=== PATIENT | female | born 1955 | race American Indian/Alaskan Native ===

== ENCOUNTER 2022-12-22 00:44 | Emergency (ER) | payer BC, SELFPAY ==
[2022-12-22] VITALS (33 sets, daily range): BP systolic 152–168; BP diastolic 71–79; PULSE 64–90; RESP 1–33; TEMP 37; O2SAT 92–96; BMI 81.8
--- NOTE | 2022-12-22 00:59 | ED.DIZZY1 ---
HPI - Dizziness General Chief Complaint: Dizziness Stated Complaint: DIZZINESS Time Seen by Provider: 12/22/22 00:59 Mode of arrival: ambulance History of Present Illness HPI Narrative: Patient presents to emergency department via EMS with complaint of dizziness. Patient is complaining of severe acute onset of dizziness worse when she changes position. She states she felt like she was drunk without being drunk. This made her feel very confused, nauseated and anxious. Patient was seen and evaluated at [place] for syncope on the . She was admitted overnight had blood work, x-rays CT and MRI of the brain which did not show anything acute. He was discharged with a Holter monitor and was seen by cardiology and neurology. Patient states she had a headache when she was seen at [facility]. Did not give her anything for the headache. She went home and 5 hours later had the same type of symptoms she was seen at [facility]. She was discharged from [facility] with a prescription for Antivert, and Medrol Dosepak which she has not picked up yet. Patient is very anxious stating she does not know what is going on has never happened before. She denies any chest pain, or shortness of breath. She has a history of chronic obstructive pulmonary disease and is normally on 4 L nasal cannula. She denies any fever, chills, or cough.The patient is on several to for paroxysmal atrial fibrillation. She denies any palpitations. Related Data Home Medications Medication Instructions Recorded Confirmed albuterol sulfate 90 mcg/actuation 2 puff inhalation Q4H 12/22/22 12/22/22 aerosol inhaler amoxicillin 500 mg tablet mg 12/22/22 aspirin 325 mg tablet mg 12/22/22 blood sugar diagnostic (Accu-Chek 12/22/22 12/22/22 Guide test strips) carvedilol 25 mg tablet mg 12/22/22 fluticasone furoate 100 inhalation 12/22/22 mcg-vilanterol 25 mcg/dose inhalation powder (Breo Ellipta) hydrocodone 5 mg-acetaminophen 325 1 tab PO Q8H 12/22/22 12/22/22 mg tablet ipratropium 0.5 mg-albuterol 3 mg 3 ml inhalation 12/22/22 (2.5 mg base)/3 mL nebulization soln levalbuterol HCl 1.25 mg/3 mL 1.25 mg inhalation Q4H 12/22/22 12/22/22 solution for nebulization lisinopril 40 mg tablet 40 mg PO DAILY 12/22/22 12/22/22 loratadine 10 mg tablet 10 mg PO Q24H 12/22/22 12/22/22 methylprednisolone 4 mg tablets in mg 12/22/22 a dose pack metoprolol tartrate 50 mg tablet 50 mg PO Q12H 12/22/22 12/22/22 nicotine 21 mg/24 hr daily 1 patch transdermal Q24H 12/22/22 12/22/22 transdermal patch omeprazole 20 mg capsule,delayed 20 mg PO DAILY 12/22/22 12/22/22 release ondansetron HCl 4 mg tablet mg 12/22/22 pen needle, diabetic 31 gauge x 12/22/22 12/22/2208/12 (BD Ultra-Fine Mini Pen Needle) rivaroxaban 20 mg tablet (Xarelto) 20 mg PO .morning 12/22/22 12/22/22 rosuvastatin 10 mg tablet 20 mg PO .morning 12/22/22 12/22/22 tramadol 50 mg tablet mg 12/22/22 Previous Rx's Medication Instructions Recorded diazepam 5 mg tablet (Valium) 5 mg PO Q8H PRN anxiety 10 days 12/22/22 #20 tabs Allergies Allergy/AdvReac Type Severity Reaction Status Date / Time nalbuphine [From Nubain] Allergy Verified 12/22/22 00:56 codine Allergy Mild Uncoded 12/22/22 00:56 Review of Systems ROS Status of ROS 10 or more systems reviewed and unremarkable except as noted in history and below [facility] Medical History (Updated 12/22/22 @ 05:51 by Adelina Lozano MD) Surgical History (Updated 12/22/22 @ 04:55 by Odilia Laughlin) Social History Smoking status: Former smoker Exam Narrative Exam Narrative: Nurses notes and vital signs reviewed and patient is not hypoxic. General: Nontoxic, Anxious, hyperventilating Skin: Warm, dry, no pallor noted. No Rash Head: Normocephalic, atraumatic. Neck: Supple, non-tender. Eye: Pupils are equal, round and EOMI. No scleral icterus.no nystagmus Ears, Nose, Mouth, and Throat: TM clear, no posterior oropharynx erythema or nasal mucosal hypertrophy, uvula is mid-line Oral mucosa is moist Cardiovascular: Regular Rate and Rhythm without murmur, gallop or rub. Respiratory: No accessory muscle use or respiratory distress. Lungs are clear to auscultation, no wheezing, rales or rhonchi Chest Wall: no tenderness Back: No midline thoracic or lumbar vertebral tenderness. No CVA tenderness Musculoskeletal: normal ROM, no calf or popliteal tenderness, no lower extremity edema/swelling GI: Obese, Abdomen is soft, non-distended. Normal bowel sounds. No masses appreciated. No tenderness to palpation. No rebound, guarding, or rigidity noted. Neurological: A&O x4. No cranial nerve dysfunction observed. No truncal ataxia. Moves all extremities. Sensation intact. Psychiatric: Cooperative and interactive. anxious Constitutional Vital Signs, click to edit/add: Last Vital Signs Temp 98.6 F 12/22/22 00:48 Pulse 77 12/22/22 04:30 Resp 16 12/22/22 04:30 BP 160/71 H 12/22/22 01:59 Pulse Ox 93 L 12/22/22 03:20 O2 Del Method Nasal Cannula 12/22/22 01:30 O2 Flow Rate 2 12/22/22 01:30 Course Vital Signs Vital signs: Vital Signs Temperature 98.6 F 12/22/22 00:48 Pulse Rate 80 12/22/22 00:48 Respiratory Rate 16 12/22/22 00:48 Blood Pressure 168/74 H 12/22/22 00:48 Pulse Oximetry 95 12/22/22 00:48 Oxygen Delivery Flow Rate 2 12/22/22 00:48 Temperature 98.6 F 12/22/22 00:48 Pulse Rate 77 12/22/22 04:30 Respiratory Rate 16 12/22/22 04:30 Blood Pressure 160/71 H 12/22/22 01:59 Pulse Oximetry 93 L 12/22/22 03:20 Oxygen Delivery Method Nasal Cannula 12/22/22 01:30 Oxygen Delivery Flow Rate 2 12/22/22 01:30 MDM - Dizziness MDM Narrative Medical decision making narrative: Patient was given Antivert, and Valium 10 mg by mouth. Labs studies were done and are unremarkable. CT of the brain and chest x-ray are unremarkable. Patient slept and rested. She had an episode where she woke up from sleep asking if we had called the police. However within an hour the patient was 100 peercent at her baseline since he was happy smiling sitting up walking to the bathroom and stating she has not felt better. She is no longer dizzy she is able to ambulate. She is tolerating by mouth. Patient is requesting to go home. She was advised to fill the prescription for Antivert, given a prescription for Valium. She is to not fill the Medrol dosepak. She will follow up with Dr. Powers in the morning. She also has follow-up appointments with neurology and we also discussed following up with mental health. At this time the patient is without objective evidence of an acute process requiring hospitalization or inpatient management. The patient has remained hemodynamically stable. No additional indication for emergent studies at this time. I answered all questions. Discussed discharge instructions including standard anticipatory guidance and what should prompt a return to the emergency department, including if they get worse are not getting better or develops any new or concerning symptoms. I've given them specific time frame in which to follow-up, and who to follow-up with. The patient demonstrates understanding. Patient is nontoxic and stable for discharge with outpatient follow-up. This note was created with the assistance of a speech recognition program. Although the intention is to generate documents that actually reflects the content of the visit, no guarantees can be provided that every mistake has been identified and corrected by editing. Differential Diagnosis Differential diagnosis: Likely benign paroxysmal positional vertigo, orthostatic hypotension, vertebral basilar insufficiency, acute vestibular neuronitis and transient cerebral ischemia Medical Records Attestation: I reviewed the patient's medical records. Medical records narrative[facility] Lab Data Attestation: I reviewed the patient's lab results. Labs: Lab Results 12/22/22 12/22/22 12/22/22 Range/Units 01:19 01:20 03:20 WBC 6.0 (4.0-11.0) 10^3/uL RBC 4.18 L (4.20-5.40) 10^6/uL Hgb 13.4 (12.0-16.0) g/dL Hct 40.0 (36.0-48.0) % MCV 95.7 (81.0-99.0) fL MCH 32.1 (26.7-34.0) pg MCHC 33.5 (29.9-35.2) g/dL RDW 12.2 (11.0-15.0) % Plt Count 249 (150-450) 10^3/uL MPV 10.0 (9.5-13.5) fL Neut % (Auto) 75.1 H (43.0-75.0) % Lymph % (Auto) 22.4 (20.5-60.0) % Callahan % (Auto) 1.5 L (1.7-12.0) % Eos % (Auto) 0.0 L (0.9-7.0) % Baso % (Auto) 0.3 (0.2-2.0) % Neut # (Auto) 4.5 (1.4-6.5) 10^3/uL Lymph # (Auto) 1.3 (1.2-3.8) 10^3/uL Callahan # (Auto) 0.1 L (0.3-0.8) 10^3/uL Eos # (Auto) 0.0 (0.0-0.7) 10^3/uL Baso # (Auto) 0.0 (0.0-0.1) 10^3/uL Abs Immat Gran (auto) 0.04 H (0.00-0.03) 10^3/uL Imm/Tot Granulo (auto) 0.7 H (0.0-0.5) % Puncture Site R radial ABG pH 7.427 (7.350-7.450) ABG pCO2 35.5 (35.0-45.0) mmHg ABG pO2 63.0 L (80.0-100.0) mmHg ABG HCO3 23.4 (22.0-26.0) mmol/L ABG O2 Saturation 92.9 % ABG Base Excess -1.0 (-2.0-2.0) mmol/L Aki Test Positive (POSITIVE) O2 Liters/Min 2.5 Sodium 140 (136-145) mmol/L Potassium 4.2 (3.5-5.1) mmol/L Chloride 103 (98-107) mmol/L Carbon Dioxide 23.3 (21.0-32.0) mmol/L Anion Gap 17.9 BUN 21.0 H (7.0-18.0) mg/dL Creatinine 1.28 H (0.55-1.02) mg/dL Est GFR ( Amer) 51 L (>=60) Est GFR (Non-Af Amer) 42 L (>=60) BUN/Creatinine Ratio 16.4 Glucose 349 H (74-106) mg/dL Calcium 9.3 (8.5-10.1) mg/dL Total Bilirubin 1.4 H (0.2-1.0) mg/dL AST 15 (15-37) U/L ALT 28 (14-59) U/L Alkaline Phosphatase 44 L (46-116) U/L Troponin I High Sens 7.0 (4.0-51.3) pg/mL NT-Pro-B Natriuret Pep 515.0 (<=900.0) pg/mL Total Protein 7.2 (6.4-8.2) g/dL Albumin 3.7 (3.4-5.0) g/dL Globulin 3.5 g/dL Albumin/Globulin Ratio 1.1 POC Glucose 325 H (74-106) mg/dL ABG Data Attestation: I personally reviewed and interpreted this ABG as follows: ECG Data Attestation: I personally reviewed and interpreted this ECG as follows: Discharge Plan Discharge Chief Complaint: Dizziness Clinical Impression: Hyperglycemia, Vertigo Patient Disposition: Home, Self-Care Time of Disposition Decision: 05:44 Condition: Good Mode of Transportation: Private Vehicle Prescriptions / Home Meds: New diazepam [Valium] 5 mg tablet 5 mg PO Q8H MDD vertigo PRN (Reason: anxiety) 10 Days Qty: 20 0RF No Action ipratropium-albuterol 0.5 mg-3 mg(2.5 mg base)/3 mL solution for nebulization 3 ml INHALATION hydrocodone-acetaminophen 5-325 mg tablet 1 tab PO Q8H tramadol 50 mg tablet amoxicillin 500 mg tablet metoprolol tartrate 50 mg tablet 50 mg PO Q12H nicotine 21 mg/24 hr patch 24 hour 1 patch transdermal Q24H levalbuterol HCl 1.25 mg/3 mL solution for nebulization 1.25 mg INHALATION Q4H methylprednisolone 4 mg tablets,dose pack albuterol sulfate 90 mcg/actuation HFA aerosol inhaler 2 puff INHALATION Q4H lisinopril 40 mg tablet 40 mg PO DAILY rosuvastatin 10 mg tablet 20 mg PO .morning (DME) pen needle, diabetic [BD Ultra-Fine Mini Pen Needle] 31 gauge x 3/16 needle MISCELLANEOUS Xarelto 20 mg tablet 20 mg PO .morning (DME) Accu-Chek Guide test strips Strip MISCELLANEOUS loratadine 10 mg tablet 10 mg PO Q24H fluticasone furoate-vilanterol [Breo Ellipta] 100-25 mcg/dose blister with device INHALATION aspirin 325 mg tablet ondansetron HCl 4 mg tablet carvedilol 25 mg tablet omeprazole 20 mg capsule,delayed release(DR/EC) 20 mg PO DAILY Instructions: Vertigo (ED) Stand Alone Forms: Portal Instructions Referrals: YUNIOR POWERS [Primary Care Provider] - 1 week
[2022-12-22 01:21] LABS: Glucometer 325 mg/dL (74-106)
--- NOTE | 2022-12-22 01:25 | XR_ITS ---
The [address] [address] Patient Name: RAJI ROSARIO MRN: [id number] date: 1955 Sex: F Assigned Patient Location: ER Current Patient Location: ER Accession/Order Number: [id number] Exam Date: 12/22/2022 01:40 Report Date: 12/22/2022 05:49 At the request of: SOCORRO AMAYA Procedure: XR chest 1V EXAM: XR chest 1V HISTORY: COPD. COMPARISON: 06/27/2015. TECHNIQUE: AP erect portable chest radiograph performed. FINDINGS: There is a mechanical device overlying the left chest. The trachea is midline. The heart size is within normal limits. There is stable moderate atheromatous calcification at the aortic arch. The hilar shadows are unremarkable. There is increased density within the lower chest bilaterally secondary to overlying soft tissues/breasts. The lung volumes are normal. There is no consolidation or infiltrate. There is no pleural effusion or pulmonary vascular congestion. There is no pneumothorax. The bony structures are osteopenic. There is no acute osseous abnormality. XR/XR chest 1V IMPRESSION: There is no acute cardiopulmonary process. Electronically authenticated by: KELSEY MENDEZ Date: 12/22/2022 05:49
--- NOTE | 2022-12-22 01:25 | ECG_ITS ---
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
--- NOTE | 2022-12-22 01:26 | CT_ITS ---
The [address] [address] Patient Name: RAJI ROSARIO MRN: [id number] date: 1955 Sex: F Assigned Patient Location: ER Current [facility] Accession/Order Number: [id number] Exam Date: 12/22/2022 01:40 Report Date: 12/22/2022 04:26 At the request of: SOCORRO AMAYA Procedure: CT head/brain wo con EXAM: CT head/brain wo con CLINICAL INDICATION: mental status changes COMPARISON: None TECHNIQUE: Axial CT images of the brain were obtained without contrast. Dose reduction techniques were achieved by using automated exposure control and/or adjustment of mA and/or kV according to patient size and/or use of iterative reconstruction technique. FINDINGS: Brain parenchyma: No mass effect or midline shift is seen. Mac-white differentiation is maintained. Small focal hyperdensity noted along the left jovel radiata measuring 3.4 mm may represent a small cavernoma versus less likely focal hemorrhage. No findings suggesting acute stroke. Periventricular hypoattenuation / patchy white matter hypodensities are statistically most often related to small vessel ischemic disease. Ventricles and extra-axial spaces: Ventricles are concordant with sulci. No findings suggesting hydrocephalus. Visualized paranasal sinuses: No findings suggesting acute sinusitis. Mastoid air cells: Clear. Included portions of the orbits:Included portions of the orbits with no evidence of fracture or other acute pathology. Bones: No fracture is seen. CT/CT head/brain wo con Impression: 1. Small focal hypodensity visualized along the left jovel radiata measuring 3.4 mm and may represent a small vascular malformation/cavernoma versus less likely a focal hemorrhage. Otherwise no acute processes visualized within the brain. No findings suspicious for acute stroke by noncontrast head CT. If there is high suspicion for acute intracranial pathology, please note that magnetic resonance imaging or other additional evaluation may be more sensitive than noncontrast head CT. Electronically authenticated by: HUMERA PLATT Date: 12/22/2022 04:26
[2022-12-22 01:44] LABS: Basophils Percent Auto 0.3 % (0.2-2.0); Hemoglobin 13.4 g/dL (12.0-16.0); Immature Granulocytes Abs Auto 0.04 10^3/uL (0.00-0.03); Immature Granulocytes Pct Auto 0.7 % (0.0-0.5); Lymphocytes Absolute Auto 1.3 10^3/uL (1.2-3.8); Lymphocytes Percent Auto 22.4 % (20.5-60.0); Mean Corpuscular HGB Conc 33.5 g/dL (29.9-35.2); Mean Corpuscular Hemoglobin 32.1 pg (26.7-34.0); Mean Corpuscular Volume 95.7 fL (81.0-99.0); Monocytes Absolute Auto 0.1 10^3/uL (0.3-0.8); Monocytes Percent Auto 1.5 % (1.7-12.0); Neutrophils Absolute Auto 4.5 10^3/uL (1.4-6.5); Neutrophils Percent Auto 75.1 % (43.0-75.0); Platelet Count 249 10^3/uL (150-450); Red Blood Count 4.18 10^6/uL (4.20-5.40); Red Cell Distribution Width 12.2 % (11.0-15.0)
[2022-12-22] MEDS: MECLIZINE HCL 12.5 MG TABLET 25 MG PO (01:54)
[2022-12-22] MEDS: 0.9 % SODIUM CHLORIDE 1,000 ML 1000 ML IV (01:54)
[2022-12-22] MEDS: DIAZEPAM 5 MG TABLET 10 MG PO (01:54)
[2022-12-22 02:05] LABS: Alanine Aminotransferase 28 U/L (14-59); Albumin Globulin Ratio 1.1; Albumin Level 3.7 g/dL (3.4-5.0); Alkaline Phosphatase 44 U/L (46-116); Anion Gap 17.9; Aspartate Amino Transferase 15 U/L (15-37); BUN Creatinine Ratio 16.4; Bilirubin Total 1.4 mg/dL (0.2-1.0); Calcium 9.3 mg/dL (8.5-10.1); Carbon Dioxide 23.3 mmol/L (21.0-32.0); Chloride 103 mmol/L (98-107); Estimated GFR (African America 51 (>=60); Estimated GFR (Non-African Ame 42 (>=60); Globulin 3.5 g/dL; Glucose 349 mg/dL (74-106); Potassium 4.2 mmol/L (3.5-5.1); Sodium 140 mmol/L (136-145); Total Protein 7.2 g/dL (6.4-8.2)
--- NOTE | 2022-12-22 02:33 | PC.NURSE ---
Patient called ems for sob and dizziness.ems arrived patient was 92% on room air. saturation improved on 2l nasal canula.states she has COPD, quit smoking 3 months ago and has home o2 for 3L as needed. patient appears anxious on arrival. she was seen and evaluated at [facility] yesterday for the same thing. patient states she was diagnosed with vertigo and given prescriptions for meclizine and steroid sent to pharmacy but they did not have time to pick them up. patient states she cannot explain how she if feeling but she feels like something is wrong. upon arrival states she no longer feels SOB or dizzy but that it comes and goes. patient POC glucose 325 and reported to physician. patient denies hx of diabeties but states she was shot up with a bunch of steroids from [facility] and thats why her sugar is high. normal neuro assessment, A&O x4.
--- NOTE | 2022-12-22 02:52 | PC.NURSE ---
patient denies all pain
[2022-12-22 03:26] LABS: ABG PCO2 35.5 mmHg (35.0-45.0); Allen Test POSITIVE (POSITIVE); HCO3 ABG 23.4 mmol/L (22.0-26.0); Liters per Minute 2.5; O2 Mode NASAL CANNULA; Oxygen Saturation ABG 92.9 %; Puncture Site R RADIAL; pH ABG 7.427 (7.350-7.450)
== END 2022-12-22 06:28 | disposition home or self-care (01) ==
PROVIDERS: Emergency Provider Emergency Medicine; PCP Internal Medicine
DX: R42 Dizziness and giddiness (principal); R73.9 Hyperglycemia, unspecified; I48.0 Paroxysmal atrial fibrillation; J44.9 Chronic obstructive pulmonary disease, unspecified; Z99.81 Dependence on supplemental oxygen; Z87.891 Personal history of nicotine dependence; Z86.73 Personal history of transient ischemic attack (TIA), and cerebral infarction without residual deficits; I50.9 Heart failure, unspecified; Z79.899 Other long term (current) drug therapy; Z79.82 Long term (current) use of aspirin; Z79.01 Long term (current) use of anticoagulants
CPT/HCPCS: 36415; 36600; 70450; 71045; 80053; 82805; 83880; 84484; 85025; 93005; 99285

== ENCOUNTER 2023-01-25 09:57 | Emergency (ER) | payer BC, SELFPAY ==
[2023-01-25] VITALS (9 sets, daily range): BP systolic 129–147; BP diastolic 56–62; PULSE 44–59; RESP 14–21; TEMP 36.6; O2SAT 93–97; BMI 40.4
--- NOTE | 2023-01-25 10:33 | ED.DIZZY1 ---
HPI - Dizziness General Chief Complaint: Dizziness Stated Complaint: DIZZINESS Time Seen by Provider: 01/25/23 10:14 Source: patient Mode of arrival: ambulance Limitations: no limitations History of Present Illness HPI Narrative: This document has been composed with a new electronic medical record and [employer] voice recognition system. This document may not fully inaccurately reflect the entirety of the patient encounter.this patient's here by EMS for evaluation of dizziness. She called EMS because her was at work and could not drive her to the hospital. She has a long-standing history of this recently. She's been extensively violated at other emergency rooms other hospitals including this facility. She has had CTs of her head MRIs were had an full clinical evaluations and has no central nervous system disorder that they're aware of. She is not a diabetic. When her blood sugar was elevated on her last visit here it was due to steroids. The paramedics checked it today and her blood sugar was just over one hundred. She describes a spinning sensation as the description of her dizziness. She does not vomit. She does not have a headache. She has no difficulty with speech or swallowing. He has no weakness of the extremities or sensory disturbance. She takes Antivert on an as-needed basis. He has never seen physical therapy for any type of corrective maneuvers. Related Data Home Medications Medication Instructions Recorded Confirmed albuterol sulfate 90 mcg/actuation 2 puff inhalation Q4H 12/22/22 01/25/23 aerosol inhaler aspirin 325 mg tablet 325 mg PO DAILY 12/22/22 01/25/23 blood sugar diagnostic (Accu-Chek 12/22/22 01/25/23 Guide test strips) carvedilol 25 mg tablet mg 12/22/22 hydrocodone 5 mg-acetaminophen 325 1 tab PO Q8H 12/22/22 01/25/23 mg tablet ipratropium 0.5 mg-albuterol 3 mg 3 ml inhalation Q6H PRN shortness 12/22/22 01/25/23 (2.5 mg base)/3 mL nebulization of breath or wheezing soln lisinopril 40 mg tablet 40 mg PO DAILY 12/22/22 01/25/23 loratadine 10 mg tablet 10 mg PO Q24H 12/22/22 01/25/23 metoprolol tartrate 50 mg tablet 50 mg PO Q12H 12/22/22 01/25/23 omeprazole 20 mg capsule,delayed 20 mg PO DAILY 12/22/22 01/25/23 release pen needle, diabetic 31 gauge x 12/22/22 12/22/22 3/16 (BD Ultra-Fine Mini Pen Needle) rivaroxaban 20 mg tablet (Xarelto) 20 mg PO QAM 12/22/22 01/25/23 rosuvastatin 10 mg tablet 20 mg PO QPM 12/22/22 01/25/23 furosemide 40 mg tablet 40 mg PO DAILY 01/25/23 01/25/23 meclizine 25 mg tablet 25 mg PO TID PRN dizziness 01/25/23 01/25/23 nitroglycerin 0.4 mg sublingual 0.4 mg sublingual Q5M PRN chest 01/25/23 01/25/23 tablet pain Previous Rx's Medication Instructions Recorded diazepam 5 mg tablet (Valium) 5 mg PO Q8H PRN anxiety 10 days 12/22/22 #20 tabs Allergies Allergy/AdvReac Type Severity Reaction Status Date / Time nalbuphine [From Nubain] Allergy Verified 01/25/23 10:01 codine Allergy Mild Uncoded 01/25/23 10:01 [facility] Medical History (Updated 01/25/23 @ 11:22 by Prince Watkins MD) Surgical History (Updated 12/22/22 @ 04:55 by Odilia Laughlin) Social History Smoking status: Former smoker Exam Narrative Exam Narrative: awake alert oriented ?3 normal cognition. She says sometimes when she turns her head to the right reproduces her spinning and dizziness. HEENT shows definite nystagmus with lateral gaze. It is horizontal with no rotatory or vertical component. Hearing is intact bilaterally. There is no facial asymmetry or evidence of cranial nerve abnormality. Eye examination as noted she does have some nystagmus with slight lateral gaze. Does not have diplopia. Does not have gaze deficit. Heart examination shows heart regular rate and rhythm with no murmur. 12-lead EKG had been done shows sinus rhythm. Lungs are clear with no wheeze rales rhonchi or restaurant difficulty. Neurological examination shows cranial nerves be normal. Finger to nose is norrmal. Rapid alternating movements and fine motor skills were all tested and are also normal. Constitutional Vital Signs, click to edit/add: Last Vital Signs Temp 97.9 F 01/25/23 09:58 Pulse 59 L 01/25/23 10:46 Resp 19 01/25/23 10:46 BP 129/56 01/25/23 10:46 Pulse Ox 97 01/25/23 10:20 O2 Del Method Room Air 01/25/23 10:18 Course Vital Signs Vital signs: Vital Signs Temperature 97.9 F 01/25/23 09:58 Pulse Rate 53 L 01/25/23 09:58 Respiratory Rate 19 01/25/23 09:58 Blood Pressure 147/62 H 01/25/23 09:58 Pulse Oximetry 93 L 01/25/23 09:58 Oxygen Delivery Method Room Air 01/25/23 09:58 Temperature 97.9 F 01/25/23 09:58 Pulse Rate 59 L 01/25/23 10:46 Respiratory Rate 19 01/25/23 10:46 Blood Pressure 129/56 01/25/23 10:46 Pulse Oximetry 97 01/25/23 10:20 Oxygen Delivery Method Room Air 01/25/23 10:18 MDM - Dizziness MDM Narrative Medical decision making narrative: this patient's been thoroughly evaluated for this recurring problem of vertigo. It actually is a relatively mild attack and she doesn't feel bad here at THIS time. I told her that it would be beneficial for several days to take the Antivert on a continuing basis and not just on an as-needed basis. She may need referral to ENT and referral for physical therapy for head manipulation procedures Discharge Plan Discharge Chief Complaint: Dizziness Clinical Impression: Vertigo Patient Disposition: Home, Self-Care Time of Disposition Decision: 11:21 Prescriptions / Home Meds: No Action ipratropium-albuterol 0.5 mg-3 mg(2.5 mg base)/3 mL solution for nebulization 3 ml INHALATION Q6H PRN (Reason: shortness of breath or wheezing) hydrocodone-acetaminophen 5-325 mg tablet 1 tab PO Q8H metoprolol tartrate 50 mg tablet 50 mg PO Q12H albuterol sulfate 90 mcg/actuation HFA aerosol inhaler 2 puff INHALATION Q4H lisinopril 40 mg tablet 40 mg PO DAILY rosuvastatin 10 mg tablet 20 mg PO QPM (DME) pen needle, diabetic [BD Ultra-Fine Mini Pen Needle] 31 gauge x 3/16 needle MISCELLANEOUS Xarelto 20 mg tablet 20 mg PO QAM (DME) Accu-Chek Guide test strips Strip MISCELLANEOUS loratadine 10 mg tablet 10 mg PO Q24H aspirin 325 mg tablet 325 mg PO DAILY carvedilol 25 mg tablet omeprazole 20 mg capsule,delayed release(DR/EC) 20 mg PO DAILY diazepam [Valium] 5 mg tablet 5 mg PO Q8H MDD vertigo PRN (Reason: anxiety) 10 Days Qty: 20 0RF furosemide 40 mg tablet 40 mg PO DAILY meclizine 25 mg tablet 25 mg PO TID PRN (Reason: dizziness) nitroglycerin 0.4 mg tablet, sublingual 0.4 mg sublingual Q5M PRN (Reason: chest pain) Additional Instructions: take the Antivert three times a day for the next three days. Stand Alone Forms: Portal Instructions Referrals: YUNIOR SANTOS [Primary Care Provider] - 1 week
[2023-01-25] MEDS: MECLIZINE HCL 12.5 MG TABLET 25 MG PO (10:43)
[2023-01-25] MEDS: DIAZEPAM 5 MG TABLET 10 MG PO (10:43)
--- NOTE | 2023-01-25 13:10 | ECG_ITS ---
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
== END 2023-01-25 11:43 | disposition home or self-care (01) ==
PROVIDERS: Emergency Provider Emergency Medicine Emergency Medical Services; PCP Internal Medicine
DX: R42 Dizziness and giddiness (principal); Z79.899 Other long term (current) drug therapy; Z79.01 Long term (current) use of anticoagulants; Z79.82 Long term (current) use of aspirin; Z87.891 Personal history of nicotine dependence
CPT/HCPCS: 93005; 99283

== ENCOUNTER 2023-02-02 07:23 | Emergency (ER) | payer BC, SELFPAY ==
[2023-02-02] VITALS (17 sets, daily range): BP systolic 129–152; BP diastolic 54–66; PULSE 45–62; RESP 8–22; TEMP 36.6; O2SAT 88–99; BMI 38.9
--- NOTE | 2023-02-02 07:32 | ED_ITS ---
HPI - Dizziness General Chief Complaint: Dizziness Stated Complaint: GENERAL WEAKNESS Time Seen by Provider: 02/02/23 07:32 History of Present Illness HPI Narrative: Patient brought into the emergency department via EMS complaining of dizziness. Patient states she woke up this morning feeling dizzy like the room was spinning. She states she went to the bathroom and got back to her bed very fast and she was feeling weak. She denied any chest pain, shortness of breath. She denies any fever, or chills. Denies any headache, palpitations. She states she normally wears 3 L OXYGEN at night and she has been doing that without any problems. She is also being worked up for obstructive sleep apnea being fitted for a BiPAP. She states she's had dizziness intermittently for the last 22 months. She has meclizine at home but she did not take it. Related Data Home Medications Medication Instructions Recorded Confirmed albuterol sulfate 90 mcg/actuation 2 puff inhalation Q4H 12/22/22 01/25/23 aerosol inhaler aspirin 325 mg tablet 325 mg PO DAILY 12/22/22 01/25/23 blood sugar diagnostic (Accu-Chek 12/22/22 01/25/23 Guide test strips) carvedilol 25 mg tablet mg 12/22/22 hydrocodone 5 mg-acetaminophen 325 1 tab PO Q8H 12/22/22 01/25/23 mg tablet ipratropium 0.5 mg-albuterol 3 mg 3 ml inhalation Q6H PRN shortness 12/22/22 01/25/23 (2.5 mg base)/3 mL nebulization of breath or wheezing soln lisinopril 40 mg tablet 40 mg PO DAILY 12/22/22 01/25/23 loratadine 10 mg tablet 10 mg PO Q24H 12/22/22 01/25/23 metoprolol tartrate 50 mg tablet 50 mg PO Q12H 12/22/22 01/25/23 omeprazole 20 mg capsule,delayed 20 mg PO DAILY 12/22/22 01/25/23 release pen needle, diabetic 31 gauge x 12/22/22 12/22/22/16 (BD Ultra-Fine Mini Pen Needle) rivaroxaban 20 mg tablet (Xarelto) 20 mg PO QAM 12/22/22 01/25/23 rosuvastatin 10 mg tablet 20 mg PO QPM 12/22/22 01/25/23 furosemide 40 mg tablet 40 mg PO DAILY 01/25/23 01/25/23 meclizine 25 mg tablet 25 mg PO TID PRN dizziness 01/25/23 01/25/23 nitroglycerin 0.4 mg sublingual 0.4 mg sublingual Q5M PRN chest 01/25/23 01/25/23 tablet pain Previous Rx's Medication Instructions Recorded diazepam 5 mg tablet (Valium) 5 mg PO Q8H PRN anxiety 10 days 12/22/22 #20 tabs cephalexin 500 mg capsule 500 mg PO TID 7 days #21 caps 02/02/23 Allergies Allergy/AdvReac Type Severity Reaction Status Date / Time nalbuphine [From Nubain] Allergy Verified 01/25/23 10:01 codine Allergy Mild Uncoded 01/25/23 10:01 Review of Systems ROS Status of ROS 10 or more systems reviewed and unremarkable except as noted in history and below [facility] Medical History (Updated 02/02/23 @ 10:28 by Adelina Lozano MD) Surgical History (Updated 12/22/22 @ 04:55 by Odilia Laughlin) Social History Smoking status: Former smoker Exam Narrative Exam Narrative: Nurses notes and vital signs reviewed and patient is not hypoxic. General: Nontoxic, Well-appearing and in no apparent distress. Skin: Warm, dry, no pallor noted. No Rash Head: Normocephalic, atraumatic. Neck: Supple, non-tender. Eye: Pupils are equal, round and EOMI. No scleral icterus. Ears, Nose, Mouth, and Throat: TM clear, no posterior oropharynx erythema or nasal mucosal hypertrophy, uvula is mid-line Oral mucosa is moist Cardiovascular: Regular Rate and Rhythm without murmur, gallop or rub. Respiratory: No accessory muscle use or respiratory distress. Lungs are clear to auscultation, no wheezing, rales or rhonchi Chest Wall: no tenderness Back: No midline thoracic or lumbar vertebral tenderness. No CVA tenderness Musculoskeletal: normal ROM, no calf or popliteal tenderness, no lower extremity edema/swelling GI: obese, Abdomen is soft, non-distended. Normal bowel sounds. No tenderness to palpation. No rebound, guarding, or rigidity noted. Neurological: A&O x4. No cranial nerve dysfunction observed. No truncal ataxia. Moves all extremities. Psychiatric: Cooperative and interactive. Normal mood and affect. Constitutional Vital Signs, click to edit/add: Last Vital Signs Temp 97.8 F 02/02/23 07:31 Pulse 58 L 02/02/23 10:50 Resp 8 L 02/02/23 10:50 BP 129/65 02/02/23 10:35 Pulse Ox 97 02/02/23 10:50 O2 Del Method Nasal Cannula 02/02/23 08:20 O2 Flow Rate 2 02/02/23 08:20 Course Vital Signs Vital signs: Vital Signs Pulse Rate 58 L 02/02/23 07:29 Respiratory Rate 13 02/02/23 07:29 Pulse Oximetry 90 L 02/02/23 07:29 Temperature 97.8 F 02/02/23 07:31 Pulse Rate 58 L 02/02/23 10:50 Respiratory Rate 8 L 02/02/23 10:50 Blood Pressure 129/65 02/02/23 10:35 Pulse Oximetry 97 02/02/23 10:50 Oxygen Delivery Method Nasal Cannula 02/02/23 08:20 Oxygen Delivery Flow Rate 2 02/02/23 08:20 MDM - Dizziness MDM Narrative Medical decision making narrative: EKG without any acute ischemia. Patient was given IV fluids, Antivert. Chest x- ray, labs and urinalysis were done. ABG shows slightly increased PCO2. Patient is to follow-up with pulmonary continue with the studies for the BiPAP. Patient was found to have a urinary tract infection. She is feeling better. She will be sent home on Keflex. At this time the patient is without objective evidence of an acute process requiring hospitalization or inpatient management. The patient has remained hemodynamically stable. No additional indication for emergent studies at this time. I answered all questions. Discussed discharge instructions including standard anticipatory guidance and what should prompt a return to the emergency department, including if they get worse are not getting better or develops any new or concerning symptoms. I've given them specific time frame in which to follow-up, and who to follow-up with. The patient demonstrates understanding. Patient is nontoxic and stable for discharge with outpatient follow-up. This note was created with the assistance of a speech recognition program. Although the intention is to generate documents that actually reflects the content of the visit, no guarantees can be provided that every mistake has been identified and corrected by editing. Medical Records Attestation: I reviewed the patient's medical records. Lab Data Attestation: I reviewed the patient's lab results. Labs: Lab Results 02/02/23 02/02/23 02/02/23 Range/Units 07:50 09:23 10:00 WBC 6.9 (4.0-11.0) 10^3/uL RBC 4.08 L (4.20-5.40) 10^6/uL Hgb 12.8 (12.0-16.0) g/dL Hct 38.7 (36.0-48.0) % MCV 94.9 (81.0-99.0) fL MCH 31.4 (26.7-34.0) pg MCHC 33.1 (29.9-35.2) g/dL RDW 11.4 (11.0-15.0) % Plt Count 192 (150-450) 10^3/uL MPV 10.0 (9.5-13.5) fL Neut % (Auto) 29.7 L (43.0-75.0) % Lymph % (Auto) 55.9 (20.5-60.0) % [place] % (Auto) 10.6 (1.7-12.0) % Eos % (Auto) 2.8 (0.9-7.0) % Baso % (Auto) 0.9 (0.2-2.0) % Neut # (Auto) 2.0 (1.4-6.5) 10^3/uL Lymph # (Auto) 3.8 (1.2-3.8) 10^3/uL [place] # (Auto) 0.7 (0.3-0.8) 10^3/uL Eos # (Auto) 0.2 (0.0-0.7) 10^3/uL Baso # (Auto) 0.1 (0.0-0.1) 10^3/uL Abs Immat Gran (auto) 0.01 (0.00-0.03) 10^3/uL Imm/Tot Granulo (auto) 0.1 (0.0-0.5) % ABG pH 7.410 (7.350-7.450) ABG pCO2 49.0 H (35.0-45.0) mmHg ABG pO2 70.9 L (80.0-100.0) mmHg ABG HCO3 31.0 H (22.0-26.0) mmol/L ABG O2 Saturation 95.2 % ABG Base Excess 6.4 H (-2.0-2.0) mmol/L Aki Test Positive (POSITIVE) O2 Liters/Min 2 Sodium 139 (136-145) mmol/L Potassium 3.9 (3.5-5.1) mmol/L Chloride 102 (98-107) mmol/L Carbon Dioxide 34.4 H (21.0-32.0) mmol/L Anion Gap 6.5 BUN 17.0 (7.0-18.0) mg/dL Creatinine 1.02 (0.55-1.02) mg/dL Est GFR ( Amer) >60 (>=60) Est GFR (Non-Af Amer) 54 L (>=60) BUN/Creatinine Ratio 16.7 Glucose 150 H (74-106) mg/dL Calcium 9.2 (8.5-10.1) mg/dL Total Bilirubin 0.7 (0.2-1.0) mg/dL AST 16 (15-37) U/L ALT 28 (14-59) U/L Alkaline Phosphatase 40 L (46-116) U/L Troponin I High Sens 5.7 (4.0-51.3) pg/mL NT-Pro-B Natriuret Pep 68.0 (<=900.0) pg/mL Total Protein 6.8 (6.4-8.2) g/dL Albumin 3.3 L (3.4-5.0) g/dL Globulin 3.5 g/dL Albumin/Globulin Ratio 0.9 Urine Color Lt. yellow (YELLOW) Urine Clarity Slightly cloudy A (CLEAR) Urine pH 7.0 (5.0-9.0) Ur Specific [place] 1.010 (1.005-1.025) Urine Protein Negative (NEG/TRACE) mg/dL Urine Glucose (UA) Negative (NEGATIVE) mg/dL Urine Ketones Negative (NEGATIVE) mg/dL Urine Occult Blood Negative (NEGATIVE) Urine Nitrite Positive A (NEGATIVE) Urine Bilirubin Negative (NEGATIVE) Urine Urobilinogen 0.2 (0.2-1.0) EU/dL Ur Leukocyte Esterase Trace A (NEGATIVE) Urine RBC None seen (0-2) #/HPF Urine WBC 5-10 A (NONE SEEN) #/HPF Ur Squamous Epith Cells None seen (NONE/RARE) #/LPF Urine Crystals None seen (None Seen) #/HPF Urine Bacteria Moderate A (NONE SEEN) #/HPF Urine Casts None seen (NONE SEEN) #/LPF Urine Mucus None seen (NONE SEEN) Ur Culture Indicated? Yes ECG Data Attestation: I personally reviewed and interpreted this ECG as follows: Discharge Plan Discharge Chief Complaint: Dizziness Clinical Impression: Dizziness, Acute UTI Patient Disposition: Home, Self-Care Time of Disposition Decision: 10:27 Condition: Good Mode of Transportation: Private Vehicle Prescriptions / Home Meds: New cephalexin 500 mg capsule 500 mg PO TID 7 Days Qty: 21 0RF No Action ipratropium-albuterol 0.5 mg-3 mg(2.5 mg base)/3 mL solution for nebulization 3 ml INHALATION Q6H PRN (Reason: shortness of breath or wheezing) hydrocodone-acetaminophen 5-325 mg tablet 1 tab PO Q8H metoprolol tartrate 50 mg tablet 50 mg PO Q12H albuterol sulfate 90 mcg/actuation HFA aerosol inhaler 2 puff INHALATION Q4H lisinopril 40 mg tablet 40 mg PO DAILY rosuvastatin 10 mg tablet 20 mg PO QPM (DME) pen needle, diabetic [BD Ultra-Fine Mini Pen Needle] 31 gauge x 3/16 needle MISCELLANEOUS Xarelto 20 mg tablet 20 mg PO QAM (DME) Accu-Chek Guide test strips Strip MISCELLANEOUS loratadine 10 mg tablet 10 mg PO Q24H aspirin 325 mg tablet 325 mg PO DAILY carvedilol 25 mg tablet omeprazole 20 mg capsule,delayed release(DR/EC) 20 mg PO DAILY diazepam [Valium] 5 mg tablet 5 mg PO Q8H MDD vertigo PRN (Reason: anxiety) 10 Days Qty: 20 0RF furosemide 40 mg tablet 40 mg PO DAILY meclizine 25 mg tablet 25 mg PO TID PRN (Reason: dizziness) nitroglycerin 0.4 mg tablet, sublingual 0.4 mg sublingual Q5M PRN (Reason: chest pain) Instructions: Urinary Tract Infection in Women (ED), Dizziness (ED) Stand Alone Forms: Portal Instructions Referrals: YUNIOR SANTOS [Primary Care Provider] - 1 week
--- NOTE | 2023-02-02 07:43 | ECG_ITS ---
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
--- NOTE | 2023-02-02 07:43 | XR_ITS ---
The [address] [address] Patient Name: RAJI ROSARIO MRN: [id number] date: 1955 Sex: F Assigned Patient Location: ER Current Patient Location: ER Accession/Order Number: [id number] Exam Date: 02/02/2023 08:15 Report Date: 02/02/2023 08:28 At the request of: SOCORRO AMAYA Procedure: XR chest 1V EXAM: XR chest 1V HISTORY: . dizziness . COMPARISON: 12/22/2022 TECHNIQUE: Single view of the chest. FINDINGS: Heart and vascularity are unremarkable. Lungs are free of focal infiltrates. Atherosclerotic changes of the thoracic aorta are noted. EKG leads overlie the chest. XR/XR chest 1V Impression: No acute heart or lung disease identified. Electronically authenticated by: ZAID ANTHONY Date: 02/02/2023 08:28
[2023-02-02 08:00] LABS: Basophils Absolute Auto 0.1 10^3/uL (0.0-0.1); Basophils Percent Auto 0.9 % (0.2-2.0); Eosinophils Absolute Auto 0.2 10^3/uL (0.0-0.7); Eosinophils Percent Auto 2.8 % (0.9-7.0); Hematocrit 38.7 % (36.0-48.0); Hemoglobin 12.8 g/dL (12.0-16.0); Immature Granulocytes Abs Auto 0.01 10^3/uL (0.00-0.03); Immature Granulocytes Pct Auto 0.1 % (0.0-0.5); Lymphocytes Absolute Auto 3.8 10^3/uL (1.2-3.8); Lymphocytes Percent Auto 55.9 % (20.5-60.0); Mean Corpuscular HGB Conc 33.1 g/dL (29.9-35.2); Mean Corpuscular Hemoglobin 31.4 pg (26.7-34.0); Mean Corpuscular Volume 94.9 fL (81.0-99.0); Monocytes Absolute Auto 0.7 10^3/uL (0.3-0.8); Monocytes Percent Auto 10.6 % (1.7-12.0); Neutrophils Percent Auto 29.7 % (43.0-75.0); Platelet Count 192 10^3/uL (150-450); Red Blood Count 4.08 10^6/uL (4.20-5.40); Red Cell Distribution Width 11.4 % (11.0-15.0); White Blood Count 6.9 10^3/uL (4.0-11.0)
[2023-02-02 08:24] LABS: Alanine Aminotransferase 28 U/L (14-59); Albumin Globulin Ratio 0.9; Albumin Level 3.3 g/dL (3.4-5.0); Alkaline Phosphatase 40 U/L (46-116); Anion Gap 6.5; Aspartate Amino Transferase 16 U/L (15-37); BUN Creatinine Ratio 16.7; Bilirubin Total 0.7 mg/dL (0.2-1.0); Calcium 9.2 mg/dL (8.5-10.1); Carbon Dioxide 34.4 mmol/L (21.0-32.0); Chloride 102 mmol/L (98-107); Estimated GFR (African America >60 (>=60); Estimated GFR (Non-African Ame 54 (>=60); Globulin 3.5 g/dL; Glucose 150 mg/dL (74-106); Potassium 3.9 mmol/L (3.5-5.1); Sodium 139 mmol/L (136-145); Total Protein 6.8 g/dL (6.4-8.2); Troponin I High Sensitivity 5.7 pg/mL (4.0-51.3)
[2023-02-02] MEDS: MECLIZINE HCL 12.5 MG TABLET 25 MG PO (08:34)
[2023-02-02 09:30] LABS: Base Excess ABG 6.4 mmol/L (-2.0-2.0); PO2 ABG 70.9 mmHg (80.0-100.0)
[2023-02-02 09:31] LABS: Allen Test POSITIVE (POSITIVE); Liters per Minute 2; O2 Mode NC; Oxygen Saturation ABG 95.2 %
[2023-02-02 10:21] LABS: Bilirubin Urine NEGATIVE (NEGATIVE); Blood Urine NEGATIVE (NEGATIVE); Color Urine LT. YELLOW (YELLOW); Glucose Urine UA NEGATIVE (NEGATIVE); Ketones Urine NEGATIVE (NEGATIVE); Leukocyte Esterase Urine TRACE (NEGATIVE); Nitrite Urine POSITIVE (NEGATIVE); Protein Urine NEGATIVE (NEG/TRACE); Urobilinogen Urine 0.2 EU/dL (0.2-1.0)
[2023-02-02 10:24] LABS: Clarity Urine SLIGHTLY CLOUDY (CLEAR); Urine Microscopic Indicated YES
[2023-02-02 10:26] LABS: Bacteria Urine MODERATE #/HPF (NONE SEEN); Cast Seen? NONE SEEN #/LPF (NONE SEEN); Crystals Seen? None Seen #/HPF (None Seen); Mucus Urine NONE SEEN (NONE SEEN); RBC Urine NONE SEEN #/HPF (0-2); Squamous Epithelial Cell Urine NONE SEEN #/LPF (NONE/RARE); Urine Culture Indicated YES
--- NOTE | 2023-02-05 07:42 | PC.NURSE ---
02/05/23 0742 urine c+s reviewed by Francisco Farmer on 02/04/23 nno at this time. Mia Bone RN
== END 2023-02-02 12:34 | disposition home or self-care (01) ==
PROVIDERS: Emergency Provider Emergency Medicine; PCP Internal Medicine
DX: R42 Dizziness and giddiness (principal); N39.0 Urinary tract infection, site not specified; Z99.81 Dependence on supplemental oxygen; Z79.82 Long term (current) use of aspirin; Z79.899 Other long term (current) drug therapy; Z87.891 Personal history of nicotine dependence
CPT/HCPCS: 36415; 36600; 71045; 80053; 81001; 82805; 83880; 84484; 85025; 87086; 87150; 87186; 93005; 99285

== ENCOUNTER 2024-02-10 05:45 | Emergency (ER) | payer BC, SELFPAY ==
[2024-02-10] VITALS (20 sets, daily range): BP systolic 127–132; BP diastolic 79–88; PULSE 48–75; TEMP 36.6; O2SAT 97–98; BMI 44.4
--- NOTE | 2024-02-10 06:07 | ED_ITS ---
HPI HPI - General Adult General Chief complaint: Weakness Stated complaint: WEAKNESS Time Seen by Provider: 02/10/24 05:53 Source: patient Mode of arrival: ambulance History of Present Illness HPI narrative: patient presents with one year history of anxiety. States she wakes up from her sleep at night and is very anxious. . states no one has been giving her any medication for her anxiety. Arrives via Squad. Admits now that she is here, her anxiety is less. States she has heart disease and because of this she is not a candidate for knee surgery. Has chest pain on and off including tonight. Related Data Home Medications ?Medication ?Instructions ?Recorded ?Confirmed albuterol sulfate 90 mcg/actuation 2 puff inhalation Q4H 12/22/22 02/10/24 aerosol inhaler aspirin 325 mg tablet 325 mg PO DAILY 12/22/22 02/10/24 blood sugar diagnostic (Accu-Chek 12/22/22 01/25/23 Guide test strips) hydrocodone 5 mg-acetaminophen 325 1 tab PO Q8H 12/22/22 02/10/24 mg tablet ipratropium 0.5 mg-albuterol 3 mg 3 ml inhalation Q6H PRN shortness 12/22/22 02/10/24 (2.5 mg base)/3 mL nebulization of breath or wheezing soln lisinopril 40 mg tablet 40 mg PO DAILY 12/22/22 02/10/24 loratadine 10 mg tablet 10 mg PO Q24H 12/22/22 02/10/24 metoprolol tartrate 50 mg tablet 50 mg PO Q12H 12/22/22 02/10/24 omeprazole 20 mg capsule,delayed 20 mg PO DAILY 12/22/22 02/10/24 release pen needle, diabetic 31 gauge x 12/22/22 12/22/22/16 (BD Ultra-Fine Mini Pen Needle) rivaroxaban 20 mg tablet (Xarelto) 20 mg PO QAM 12/22/22 02/10/24 rosuvastatin 10 mg tablet 20 mg PO QPM 12/22/22 02/10/24 furosemide 40 mg tablet 40 mg PO DAILY 01/25/23 02/10/24 meclizine 25 mg tablet 25 mg PO TID PRN dizziness 01/25/23 02/10/24 nitroglycerin 0.4 mg sublingual 0.4 mg sublingual Q5M PRN chest 01/25/23 02/10/24 tablet pain magnesium 200 mg tablet 400 mg PO DAILY 02/10/24 02/10/24 Allergies Allergy/AdvReac Type Severity Reaction Status Date / Time montelukast [From Singulair] Allergy Intermediate Hives Verified 02/10/24 05:59 nalbuphine [From Nubain] Allergy Nausea Verified 02/10/24 05:59 codine Allergy Mild Nausea Uncoded 02/10/24 05:59 Opioid HPI Opioid Management Most Recent Opioid Data: No Data to Display Review of Systems ROS Status of ROS 10 or more systems reviewed and unremark able except as noted in history and below [facility] Medical History (Updated 02/10/24 @ 06:41 by Krishna James MD) CVA (cerebral vascular accident) ?I63.9 - Cerebral infarction, unspecified (ICD-10) On home oxygen therapy ?Z99.81 - Dependence on supplemental oxygen (ICD-10) Chronic obstructive pulmonary disease ?J44.9 - Chronic obstructive pulmonary disease, unspecified (ICD-10) Congestive heart failure ?I50.9 - Heart failure, unspecified (ICD-10) Surgical History (Updated 12/22/22 @ 04:55 by Odilia Laughlin) History of appendectomy ?Z90.49 - Acquired absence of other specified parts of digestive tract (ICD- 10) History of bilateral oophorectomy ?Z90.722 - Acquired absence of ovaries, bilateral (ICD-10) Social History Smoking status: Former smoker Little interest or pleasure in doing things: not at all Feeling down, depressed, or hopeless: not at all Exam Constitutional Vital Signs, click to edit/add: Last Vital Signs Temp 97.9 F 02/10/24 05:47 Pulse 60 02/10/24 05:47 Resp 18 02/10/24 05:47 BP 127/79 02/10/24 05:47 Pulse Ox 98 02/10/24 05:47 O2 Del Method Room Air 02/10/24 05:47 Common normals: oriented x3, alert and well nourished General appearance: anxious HENMT Common normals: normocephalic and head/scalp atraumatic Eye Common normals: EOMs intact bilaterally and conjunctivae normal Respiratory Common normals: normal respiratory effort, no retractions, no use of accessory muscles and clear to auscultation bilaterally Cardio Common normals: regular rate, regular rhythm, S1 normal heart sound and S2 normal heart sound GI Common normals: Normal to inspection, nondistended, normoactive bowel sounds present, soft to palpation and non-tender Extremity Common normals: normal to inspection and full ROM Neuro Common normals: oriented x3, CN's II-XII intact bilaterally, moves all extremities and no focal motor deficits Psych Mood and affect: anxious Course Vital Signs Vital signs: Vital Signs Temperature 97.9 F 02/10/24 05:47 Pulse Rate 60 02/10/24 05:47 Respiratory Rate 18 02/10/24 05:47 Blood Pressure 127/79 02/10/24 05:47 Pulse Oximetry 98 02/10/24 05:47 Oxygen Delivery Method Room Air 02/10/24 05:47 Temperature 97.9 F 02/10/24 05:47 Pulse Rate 60 02/10/24 05:47 Respiratory Rate 18 02/10/24 05:47 Blood Pressure 127/79 02/10/24 05:47 Pulse Oximetry 98 02/10/24 05:47 Oxygen Delivery Method Room Air 02/10/24 05:47 Medical Decision Making MDM Narrative Medical decision making narrative: patient arrives with what appears to be another anxiety attack. Similar attacks on and off for the past year. She states history of heart disease and for this reason troponin lab ordered. Patient medicated with Vistaril and labs pending. care transferred to Dr Muñiz at change of shift Lab Data Labs: Lab Results 02/10/24 Range/Units 05:53 WBC 7.5 (4.0-11.0) 10^3/uL RBC 4.36 (4.20-5.40) 10^6/uL Hgb 13.6 (12.0-16.0) g/dL Hct 41.8 (36.0-48.0) % MCV 95.9 (81.0-99.0) fL MCH 31.2 (26.7-34.0) pg MCHC 32.5 (29.9-35.2) g/dL RDW 11.9 (11.0-15.0) % Plt Count 209 (150-450) 10^3/uL MPV 11.1 (9.5-13.5) fL Neut % (Auto) 36.1 L (43.0-75.0) % Lymph % (Auto) 49.4 (20.5-60.0) % [place] % (Auto) 10.3 (1.7-12.0) % Eos % (Auto) 2.9 (0.9-7.0) % Baso % (Auto) 1.2 (0.2-2.0) % Neut # (Auto) 2.7 (1.4-6.5) 10^3/uL Lymph # (Auto) 3.7 (1.2-3.8) 10^3/uL [place] # (Auto) 0.8 (0.3-0.8) 10^3/uL Eos # (Auto) 0.2 (0.0-0.7) 10^3/uL Baso # (Auto) 0.1 (0.0-0.1) 10^3/uL Abs Immat Gran (auto) 0.01 (0.00-0.03) 10^3/uL Imm/Tot Granulo (auto) 0.1 (0.0-0.5) % Sodium 138 (136-145) mmol/L Potassium 4.2 (3.5-5.1) mmol/L Chloride 103 (98-107) mmol/L Carbon Dioxide 33.1 H (21.0-32.0) mmol/L Anion Gap 6.1 BUN 14.0 (7.0-18.0) mg/dL Creatinine 1.19 H (0.55-1.02) mg/dL Est GFR ( Amer) 55 L (>=60) Est GFR (Non-Af Amer) 45 L (>=60) BUN/Creatinine Ratio 11.8 Glucose 144 H (74-106) mg/dL Calcium 9.0 (8.5-10.1) mg/dL Troponin I High Sens 5.8 (4.0-51.3) pg/mL Discharge Plan Discharge Chief Complaint: Weakness Clinical Impression: Anxiety Patient Disposition: Still a Patient Prescriptions / Home Meds: No Action ipratropium-albuterol 0.5 mg-3 mg(2.5 mg base)/3 mL solution for nebulization 3 ml INHALATION Q6H PRN (Reason: shortness of breath or wheezing) hydrocodone-acetaminophen 5-325 mg tablet 1 tab PO Q8H metoprolol tartrate 50 mg tablet 50 mg PO Q12H albuterol sulfate 90 mcg/actuation HFA aerosol inhaler 2 puff INHALATION Q4H lisinopril 40 mg tablet 40 mg PO DAILY rosuvastatin 10 mg tablet 20 mg PO QPM (DME) pen needle, diabetic [BD Ultra-Fine Mini Pen Needle] 31 gauge x 3/16 needle MISCELLANEOUS Xarelto 20 mg tablet 20 mg PO QAM (DME) Accu-Chek Guide test strips Strip MISCELLANEOUS loratadine 10 mg tablet 10 mg PO Q24H aspirin 325 mg tablet 325 mg PO DAILY omeprazole 20 mg capsule,delayed release(DR/EC) 20 mg PO DAILY furosemide 40 mg tablet 40 mg PO DAILY meclizine 25 mg tablet 25 mg PO TID PRN (Reason: dizziness) nitroglycerin 0.4 mg tablet, sublingual 0.4 mg sublingual Q5M PRN (Reason: chest pain) magnesium 200 mg tablet 400 mg PO DAILY Print Language: Prydeinig Referrals: YUNIOR SANTOS [Primary Care Provider] - 1 week
[2024-02-10 06:13] LABS: Basophils Absolute Auto 0.1 10^3/uL (0.0-0.1); Basophils Percent Auto 1.2 % (0.2-2.0); Eosinophils Absolute Auto 0.2 10^3/uL (0.0-0.7); Eosinophils Percent Auto 2.9 % (0.9-7.0); Hematocrit 41.8 % (36.0-48.0); Hemoglobin 13.6 g/dL (12.0-16.0); Immature Granulocytes Abs Auto 0.01 10^3/uL (0.00-0.03); Immature Granulocytes Pct Auto 0.1 % (0.0-0.5); Lymphocytes Absolute Auto 3.7 10^3/uL (1.2-3.8); Lymphocytes Percent Auto 49.4 % (20.5-60.0); Mean Corpuscular HGB Conc 32.5 g/dL (29.9-35.2); Mean Corpuscular Hemoglobin 31.2 pg (26.7-34.0); Mean Corpuscular Volume 95.9 fL (81.0-99.0); Mean Platelet Volume 11.1 fL (9.5-13.5); Monocytes Absolute Auto 0.8 10^3/uL (0.3-0.8); Monocytes Percent Auto 10.3 % (1.7-12.0); Neutrophils Absolute Auto 2.7 10^3/uL (1.4-6.5); Neutrophils Percent Auto 36.1 % (43.0-75.0); Platelet Count 209 10^3/uL (150-450); Red Blood Count 4.36 10^6/uL (4.20-5.40); Red Cell Distribution Width 11.9 % (11.0-15.0); White Blood Count 7.5 10^3/uL (4.0-11.0)
--- NOTE | 2024-02-10 06:14 | ECG_ITS ---
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
[2024-02-10 06:29] LABS: Anion Gap 6.1; BUN Creatinine Ratio 11.8; Carbon Dioxide 33.1 mmol/L (21.0-32.0); Chloride 103 mmol/L (98-107); Estimated GFR (African America 55 (>=60); Estimated GFR (Non-African Ame 45 (>=60); Glucose 144 mg/dL (74-106); Potassium 4.2 mmol/L (3.5-5.1); Sodium 138 mmol/L (136-145)
[2024-02-10] MEDS: HYDROXYZINE PAMOATE 25 MG CAPSULE 50 MG PO (06:30)
[2024-02-10 06:31] LABS: Troponin I High Sensitivity 5.8 pg/mL (4.0-51.3)
--- NOTE | 2024-02-10 06:36 | PC.NURSE ---
upon entering patient room, patient was very tearful and hyperventilating. This RN spent time in room with patient attempting to calm her down, teaching her breathing exercises, listening to her. She explains that she has a bipolar diagnosis but is unable to take medications for it because it raises her blood pressure. She describes her attacks as waking from sleep in a panic, afraid that she is dying after having nightmares about an illness that she had last year that she says almost killed her . She will be hyperventilating, feeling like she cannot breathe, and states that she will occasionally go out , meaning episodes of syncope. She has never had a counselor. I recommended to her that she speak to her PCP about possible medications for the anxiety and night terrors and consider speaking to a counselor.
[2024-02-10 08:03] LABS: Troponin I High Sensitivity 7.4 pg/mL (4.0-51.3)
== END 2024-02-10 09:35 | disposition home or self-care (01) ==
PROVIDERS: Emergency Medicine; Emergency Provider Internal Medicine; PCP Internal Medicine
DX: F41.9 Anxiety disorder, unspecified (principal); Z87.891 Personal history of nicotine dependence
CPT/HCPCS: 36415; 80048; 84484; 85025; 93005; 99284; Q0177